=== PATIENT | male | born 2000 | race African-American/Black ===

== ENCOUNTER 2018-11-26 17:43 | Emergency (ER) | payer BC, MEDICAID ==
[~2018-11-26] VITALS: Ht 172.7 cm; Wt 58.0 kg
[2018-11-26] MEDS ORDERED: ACETAMINOPHEN 325MG TABLET PO ONE (19:30)
[2018-11-26 19:46] VITALS: BP 129/71
== END 2018-11-26 19:54 | disposition home or self-care (01) ==
LOC: ER 17:43 → EDBD 17:43 → ER 19:54
DX: S09.8XXA Other specified injuries of head, initial encounter (principal); W22.8XXA Striking against or struck by other objects, initial encounter; Y93.89 Activity, other specified; Y92.89 Other specified places as the place of occurrence of the external cause; Y99.8 Other external cause status; F17.200 Nicotine dependence, unspecified, uncomplicated; F12.10 Cannabis abuse, uncomplicated
CPT/HCPCS: 99282